=== PATIENT | female | born 1985 | race Caucasian/White ===

== ENCOUNTER 2024-07-27 20:05 | Emergency (ER) | payer BC ==
[~2024-07-27 20:05] MED LIST: Iopamidol 370 76% 100 ML VIAL ONE
[2024-07-27] MEDS ORDERED: Morphine 2 MG/ML VIAL ONE ×2 (21:12→23:29)
[2024-07-27] MEDS ORDERED: Ondansetron PF 4 MG/2 ML Vial ONE (21:12)
[2024-07-27] MEDS ORDERED: Sodium Chloride 0.9% 1,000 ML ONE (21:12)
[2024-07-27 21:24] LABS: Band 3 % (5-11); Eosinophils 2 % (0-10); Hematocrit 44.7 % (36.0-47.0); Hemoglobin 14.4 g/dL (12.0-16.0); Lymphocytes 4 % (21-51); MDiff Complete? YES; Mean Corpuscular HGB CONC 32.3 g/dL (32.0-36.0); Mean Corpuscular Hemoglobin 28.2 pg (27.0-31.0); Mean Corpuscular Volume 87.3 fl (78.0-98.0); Mean Platelet Volume 6.7 fL (7.4-10.4); Monocytes 3 % (0-10); Neutrophil 88 % (42-75); Platelet Count 326 10x3/uL (130-400); Red Blood Cell (RBC) Count 5.11 mill/uL (4.20-5.40); White Blood Cell (WBC) Count 12.3 10x3/uL (4.8-10.8)
[2024-07-27 21:35] LABS: ALT (SGPT) 17 U/L (8-55); AST (SGOT) 14 U/L (5-34); Albumin 4.2 g/dL (3.5-5.0); Alkaline Phosphatase 62 U/L (40-110); Anion Gap 14 mmol/L (10-20); BUN (Urea Nitrogen) 21 mg/dL (7.0-18.7); Bilirubin, Total 0.9 mg/dL (0.2-1.2); Calc. Creatinine Clearance 0 mL/min (70-130); Calcium 9.3 mg/dL (7.8-10.44); Carbon Dioxide 23 mmol/L (22-29); Chloride 106 mmol/L (98-107); Estimated GFR 101; Globulin 2.9 g/dL (2.4-3.5); Glucose 107 mg/dL (70-105); Lipase 7 U/L (8-78); Protein, Total 7.1 g/dL (6.0-8.3); Sodium 139 mmol/L (136-145)
[2024-07-27 22:13] LABS: Pregnancy Test - Urine (BHCG) Negative (Negative); Pregu Control Background? CLEAR/WHITE (CLR/WHITE); Pregu Control Bar Appear? YES (CONTROL BAR); Specific Gravity 1.025 (1.002-1.036)
[2024-07-27 22:14] LABS: Bilirubin Negative (Negative); Blood, Urine Moderate (Negative); Clarity Hazy (Clear); Glucose, Urine (Dipstick) Negative (Negative); Ketone, Urine 15 mg/dL (Negative); Leukocyte Negative (Negative); Nitrite Negative (Negative); Protein, Urine (Dipstick) Negative (Neg-Trace); Specific Gravity, Urine 1.025 (1.002-1.036)
[2024-07-27 22:15] LABS: Bacteria/HPF Rare-Few HPF (None Seen); CAUTI Indications for Culture Pelvic or flank pain; Urine Culture Reflex No No
[2024-07-27] MEDS ORDERED: Promethazine 25 MG TAB ONE (22:57)
== END 2024-07-28 01:22 | disposition short-term general hospital (02) ==
LOC: MADERS 20:05
DX: R10.11 Right upper quadrant pain (principal); R11.2 Nausea with vomiting, unspecified; R19.7 Diarrhea, unspecified
CPT/HCPCS: 74177; 80053; 81001; 81025; 83690; 85025; 96361; 96374; 96375; 96376; J2272; J2405; J7030; Q0169; Q9967